=== PATIENT | female | born 1985 ===

== ENCOUNTER 2018-03-13 09:39 | Emergency (ER) | payer OTHER ==
[2018-03-13 09:55] VITALS: BP 113/70; PULSE 74; RESP 16; TEMP 98; O2SAT 99
[2018-03-13] MEDS ORDERED: Sodium Chloride 0.9% 1,000 ML IV SCH (10:15)
[2018-03-13 10:24] LABS: BASO # 0.1 K/uL (0.0-0.2); BASO % 2.1 % (0.0-2.0); EOS # 0.1 K/uL (0.0-0.7); EOS % 2.2 % (0.0-4.0); HEMOGLOBIN 12.4 g/dL (12.0-16.0); LYMPH # 1.4 K/uL (1.0-4.3); LYMPH % 43.3 % (20.0-40.0); MEAN CELL VOLUME 86.8 fl (81.0-99.0); MEAN CORPUSCULAR HEMOGLOBIN 28.6 pg (27.0-31.0); MEAN CORPUSCULAR HGB CONC 32.9 g/dL (33.0-37.0); MEAN PLATELET VOLUME 7.4 fl (7.2-11.7); MONO # 0.4 K/uL (0.0-0.8); MONO % 11.1 % (0.0-10.0); NEUT # 1.3 K/uL (1.8-7.0); NEUT % 41.3 % (50.0-75.0); NRBC % 0.2 % (0.0-0.0); RBC 4.34 Mil/uL (3.80-5.20); RED CELL DISTRIBUTION WIDTH 12.7 % (11.5-14.5); WHITE BLOOD COUNT 3.2 K/uL (4.8-10.8)
[2018-03-13 10:45] LABS: ALB/GLOB RATIO 1.1 (1.0-2.1); ALT/SGPT 25 U/L (9-52); AST/SGOT 28 U/L (14-36); BLOOD UREA NITROGEN 9 mg/dl (7-17); CALCIUM 9.1 mg/dL (8.4-10.2); GFR AFRICAN-AMERICAN > 60; GFR NON-AFRICAN AMERICAN > 60; LIPASE 84 U/L (23-300)
[2018-03-13] MEDS ORDERED: Sodium Chloride 0.9% 50 ML IV ONE (11:18)
[2018-03-13] MEDS ORDERED: Iohexol 300 100 ML IJ ONE (11:18)
[2018-03-13 11:38] LABS: SQUAMOUS EPITHIAL 2 /hpf (0-5); URINE AMORPHOUS SEDIMENT RARE /ul (<OCC); URINE BACTERIA RARE (<OCC); URINE BILIRUBIN NEGATIVE (NEGATIVE); URINE BLOOD NEGATIVE (NEGATIVE); URINE CLARITY CLOUDY (Clear); URINE COLOR YELLOW (YELLOW); URINE GLUCOSE (UA) NEG (Normal); URINE LEUKOCYTE ESTERASE NEG Leu/uL (Negative); URINE PROTEIN NEGATIVE (NEGATIVE); URINE UROBILINOGEN 0.2-1.0 mg/dL (0.2-1.0)
--- NOTE | 2018-03-13 11:48 | ED PDOC ---
HPI: Abdomen Chief Complaint (Nursing): Abdominal Pain Chief Complaint (Provider): Abdominal Pain History Per: Patient History/Exam Limitations: no limitations Onset/Duration Of Symptoms: Days (x1 week) Location Of Pain/Discomfort: LLQ Quality Of Discomfort: Sharp Associated Symptoms: denies: Nausea, Vomiting, Urinary Symptoms Additional Complaint(s): 32 year old female with no significant past medical history presents to the ED complaining of left lower abdominal pain onset a week ago. She reports pain is sharp and does not radiate. Patient states that she has experienced similar pain months ago that spontaneously disappeared. She denies nausea, vomiting, dysuria, hematuria, hematochezia, vaginal bleeding, vaginal discharge, injury, or other medical complaints. PMD: Dr. Jarrod Rivas Abnormal Vaginal Bleeding: No Past Medical History Reviewed: Historical Data, Nursing Documentation, Vital Signs Vital Signs: Last Vital Signs Temp 98 F 03/13/18 09:53 Pulse 74 03/13/18 09:53 Resp 16 03/13/18 09:53 BP 113/70 03/13/18 09:53 Pulse Ox 99 03/13/18 12:45 - Medical History PMH: No Chronic Diseases - Surgical History Surgical History: No Surg Hx - Family History Family History: States: Unknown Family Hx - Social History Current smoker - smoking cessation education provided: No Ex-Smoker (has not smoked in the last 12 months): No Alcohol: None Drugs: Denies - Home Medications Home Medications: Ambulatory Orders Medication Instructions Recorded Ibuprofen [Motrin] 600 mg PO Q6 PRN #20 tab 03/13/18 - Allergies Allergies/Adverse Reactions: Allergies Allergy/AdvReac Type Severity Reaction Status Date / Time No Known Allergies Allergy Verified 03/13/18 09:53 Review of Systems ROS Statement: Except As Marked, All Systems Reviewed And Found Negative Gastrointestinal: Positive for: Abdominal Pain (sharp lower left). Negative for : Nausea, Vomiting, Hematochezia Genitourinary Female: Negative for: Dysuria, Hematuria, Vaginal Discharge, Vaginal Bleeding Physical Exam - Reviewed Nursing Documentation Reviewed: Yes Vital Signs Reviewed: Yes - Physical Exam Appears: Positive for: Non-toxic, No Acute Distress Head Exam: Positive for: ATRAUMATIC, NORMOCEPHALIC Skin: Positive for: Normal Color, Warm, Dry Eye Exam: Positive for: EOMI, Normal appearance, PERRL Neck: Positive for: Normal, Painless ROM Cardiovascular/Chest: Positive for: Regular Rate, Rhythm Respiratory: Positive for: CNT, Normal Breath Sounds Gastrointestinal/Abdominal: Positive for: Tenderness (mild LLQ) Extremity: Positive for: Normal ROM (upper and lower extremities) Neurologic/Psych: Positive for: Alert, Oriented (x3) - Laboratory Results Result Diagrams: 03/13/18 10:17 03/13/18 10:17 - ECG O2 Sat by Pulse Oximetry: 99 (RA) Pulse Ox Interpretation: Normal Medical Decision Making Medical Decision Making: Time: 10:06 Initial Impression: Abdominal Pain Initial Plan: --CT abd & pelvis --CMP --Lipase --Urine preg --CBC with differentials --NS IV 250mls/hr --Toradol 30 mg IVP --Urine culture --IV insertion Time: 12:33 --Patient is medically stable for discharge home and has been advised to follow up with PMD. Scribe Attestation: Documented by Valerie Martel, acting as a scribe for Chad Villalobos DO Provider Scribe Attestation: All medical record entries made by the Scribe were at my direction and personally dictated by me. I have reviewed the chart and agree that the record accurately reflects my personal performance of the history, physical exam, medical decision making, and the department course for this patient. I have also personally directed, reviewed, and agree with the discharge instructions and disposition. Disposition - Clinical Impression Clinical Impression: Abdominal discomfort - Disposition Referrals: Jarrdo Rivas MD [Family Provider] - Disposition Time: 12:00 Condition: IMPROVED Additional Instructions: Thank you for letting us take care of you today. The emergency medical care you received today was directed at your acute symptoms. If you were prescribed any medication, please fill it and take as directed. It may take several days for your symptoms to resolve. Return to the Emergency Department if your symptoms worsen, do not improve, or if you have any other problems. Please contact your doctor or call one of the physicians/clinics you have been referred to that are listed on the Patient Visit Information form that is included in your discharge packet. Bring any paperwork you were given at discharge with you along with any medications you are taking to your follow up visit. Our treatment cannot replace ongoing medical care by a primary care provider (PCP) outside of the emergency department. Thank you for allowing the [facility] team to be part of your care today. Follow up with your primary doctor in 2-3 days for re-evaluation and further management. Prescriptions: Ibuprofen [Motrin] 600 mg PO Q6 PRN #20 tab PRN Reason: Pain, Moderate (4-7) Instructions: Acute Abdomen (Belly Pain), Adult (DC) Forms: [employer] (Bel[place]ian)
--- NOTE | 2018-03-13 12:03 | CT ---
PROCEDURE: CT Abdomen and Pelvis with contrast HISTORY: LLQ tenderness x 1 week COMPARISON: None. TECHNIQUE: Contrast dose: 95 cc of Omnipaque 300. Axial and reformatted coronal and sagittal CT images of the abdomen and pelvis were obtained after IV contrast administration. Radiation dose: Total exam DLP = 405.04 MGy-cm. This CT exam was performed using one or more of the following dose reduction techniques: Automated exposure control, adjustment of the mA and/or kV according to patient size, and/or use of iterative reconstruction technique. FINDINGS: LOWER THORAX: Unremarkable. LIVER: Unremarkable. No gross lesion or ductal dilatation. GALLBLADDER AND BILE DUCTS: Unremarkable. PANCREAS: Unremarkable. No gross lesion or ductal dilatation. SPLEEN: Unremarkable. ADRENALS: Unremarkable. No mass. KIDNEYS AND URETERS: The kidneys enhance symmetrically without evidence of hydronephrosis. There is 1.5 centimeter low-attenuation cyst at the upper pole of the right kidney. VASCULATURE: Unremarkable. No aortic aneurysm. BOWEL: Unremarkable. No obstruction. No gross mural thickening. APPENDIX: Normal appendix. PERITONEUM: Unremarkable. No free fluid. No free air. LYMPH NODES: Unremarkable. No enlarged lymph nodes. BLADDER: Unremarkable. REPRODUCTIVE: The uterus is slightly heterogeneous. There is 1.9 centimeter cyst at the right adnexa. The left adnexa is grossly unremarkable. BONES: No acute fracture. OTHER FINDINGS: None. IMPRESSION: No CT evidence of acute pathology in the abdomen and pelvis. 1.9 centimeters cyst at the right adnexa. 1.5 centimeters cyst at the right kidney.
== END 2018-03-13 12:34 | disposition home or self-care (01) ==
LOC: H.ER 09:39
DX: R10.9 Unspecified abdominal pain (principal); Z87.891 Personal history of nicotine dependence
CPT/HCPCS: 74177; 80053; 81003; 81025; 83690; 85025; 87086; 96374; 99283; J1885; J7030; Q9967